=== PATIENT | female | born 1960 | race Caucasian/White ===

== ENCOUNTER 2020-05-12 01:37 | Emergency (ER) | payer OTHER ==
[~2020-05-12] VITALS: Ht 167.6 cm; Wt 77.1 kg
[2020-05-12] MEDS ORDERED: MORPHINE SULFAT30 M4 PO (01:45)
[2020-05-12] MEDS ORDERED: COMPAZINE10 MG PO (01:46)
[2020-05-12] MEDS ORDERED: MECLIZINE HCL25 M1 PO (01:47)
[2020-05-12] MEDS ORDERED: OXYCODONE HCL20 M1 PO (01:47)
[2020-05-12 02:49] VITALS: BP 114/73
== END 2020-05-12 03:51 | disposition home or self-care (01) ==
LOC: ER 01:37
DX: C76.0 Malignant neoplasm of head, face and neck (principal); Z51.5 Encounter for palliative care; M79.604 Pain in right leg; F32.9 Major depressive disorder, single episode, unspecified; F41.9 Anxiety disorder, unspecified; Z85.818 Personal history of malignant neoplasm of other sites of lip, oral cavity, and pharynx; Z85.118 Personal history of other malignant neoplasm of bronchus and lung; Z79.899 Other long term (current) drug therapy; Z88.2 Allergy status to sulfonamides; Z88.8 Allergy status to other drugs, medicaments and biological substances